=== PATIENT | female | born 1995 | race Two or more races ===

== ENCOUNTER 2025-08-25 11:40 | Emergency (ER) | payer MEDICAID, OTHER ==
[2025-08-25 12:23] LABS: Hematocrit 42.9 % (36.0-46.0); Hemoglobin 14.7 g/dL (12.2-16.2); Mean Corpuscular Hemoglobin 30.3 pg (28.0-32.0); Mean Corpuscular Volume 88.1 fL (80.0-100.0); Nucleated Red Blood Cells % 0.0 %
--- NOTE | 2025-08-25 13:19 | ED.PDOC ---
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 PATIENT STATES SHE IS CURRENTLY ABOUT 10 WEEKS AND BEGAN TO EXPERIENCE VAGINAL SPOTTING TODAY, PROMPTING HER TO COME TO THE ED TODAY. PATIENT DENIES DYSURIA, HEMATURIA, VAGINAL DISCHARGE, FLANK PAIN, FEVER, CHILLS, SHORTNESS OF BREATH, CHEST PAIN, ABDOMINAL PAIN, NAUSEA, VOMITING, HEADACHE, OR OTHER COMPLAINTS. NO OTHER SYMPTOMS OR MODIFYING FACTORS AT THIS TIME. PATIENT IS ALERT, ORIENTED X 4, AND HAS STEADY GAIT. Chief Complaint: Vaginal Bleed Time Seen by MD: 11:53 Reviewed Notes: Nurses Notes, Medications, Allergies Allergies: Coded Allergies: NO KNOWN ALLERGIES (Unverified , 08/25/25) Home Meds Active Scripts Nitrofurantoin Monohydrate Mac (Macrobid) 100 Mg Cap, 100 MG PO BID, #20 CAP Prov:JONES GTZ 08/25/25 Information Source: Patient Mode of Arrival: Ambulatory Timing: Hours Prehospital treatment: None Severity: Mild Vaginal Lesions: None Bleeding Quality: Bright Red Vaginal Mass: None Onset Of Mass/Bleeding: Spontaneous Sexual Activity: Last Consensual [place]: Unknown Control: None History of: Current Blood Type: Unknown Symptoms of Possible : None Associated Signs and Symptoms: Other (VAGINAL SPOTTING ) Past Medical History PAST MEDICAL HISTORY: Denies Surgical History: Denies all surgeries CARD STRIPPER History: No Pertinent CARD STRIPPER History Family History Family History: Reviewed,noncontributory to illness Social History Smoker: Non-Smoker Alcohol: Denies ETOH Use Drugs: Denies Drug Use Lives In: Home Constitutional: denies: chills, diaphoresis, fatigue, fever, malaise, sweats, weakness, others EENTM: denies: blurred vision, double vision, ear bleeding, ear discharge, ear drainage, ear pain, ear ringing, eye pain, eye redness, hearing loss, mouth pain, mouth swelling, nasal discharge, nose bleeding, nose congestion, nose pain, photophobia, tearing, throat pain, throat swelling, voice changes, others Respiratory: denies: cough, hemoptysis, orthopnea, SOB at rest, shortness of breath, SOB with excertion, stridor, wheezing, others Cardiovascular: denies: chest pain, dizzy spells, diaphoresis, Dyspnea on exertion, edema, irregular heart beat, left arm pain, lightheadedness, palpitations, PND, syncope, others Gastrointestinal: denies: abdomen distended, abdominal pain, blood streaked bowels, constipated, diarrhea, dysphagia, difficulty swallowing, hematemesis, melena, nausea, poor appetite, poor fluid intake, rectal bleeding, rectal pain, vomiting, others Genitourinary: reports: abnormal vagina bleeding, ; denies: burning, dyspareunia, dysuria, flank pain, frequency, hematuria, incontinence, pain, vagina discharge, urgency, others Neurological: denies: dizziness, fainting, headache, left sided numbness, left sided weakness, numbness, paresthesia, pre-existing deficit, right sided numbness, right sided weakness, seizure, speech problems, tingling, tremors, weakness, others Musculoskeletal: denies: back pain, gout, joint pain, joint swelling, muscle pain, muscle stiffness, neck pain, others Integumetry: denies: bruises, change in color, change in hair/nails, dryness, laceration, lesions, lumps, rash, wounds, others Allergic/Immunocompromised: denies: Difficulty Healing, Frequent Infections, Hives, Itching, others Hematologic/Lymphatic: denies: anemia, blood clots, easy bleeding, easy bruising, swollen glands, others Endocrine: denies: excessive hunger, excessive sweating, excessive thirst, excessive urination, flushing, intolerance to cold, intolerance to heat, unexplained weight gain, unexplained weight loss, others Psychiatric: denies: anxiety, bipolar disorder, depression, hopeless, panic disorder, schizophrenia, sleepless, suicidal, others All Other Systems: Reviewed and Negative Physical Exam General Appearance: No Apparent Distress, Obese HEENT: Normal ENT Inspection, PERRL/EOMI, Pharynx Normal, TMs Normal Neck: Full Range of Motion, Non-Tender, Normal, Normal Inspection Respiratory: Chest Non-Tender, Lungs Clear, No Accessory Muscle Use, No Respiratory Distress, Normal Breath Sounds Cardiovascular: No Edema, No JVD, No Murmur, No Gallop, Normal Peripheral Pulses, Regular Rate/Rhythm Breast Exam: Deferred Gastrointestinal: No Organomegaly, Non Tender, No Pulsatile Mass, Normal Bowel Sounds, Soft Genitalia: Deferred Pelvic: Normal External Exam, Tender Uterus, Other (VAGINAL SPOTTING, NO VAGINAL BLEEDING AND BLOOD CLOTS. 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 Was a procedure done?: No Differential Diagnosis (CARD STRIPPER) Vaginal Bleeding: - Complete, - Incomplete, - Threatened, UTI, Vaginitis Mass / Lesion: N/A Vaginal Discharge: N/A X-Ray, Labs, Meds, VS Vital Signs Date Time Temp Pulse Resp B/P (MAP) Pulse Ox O2 Delivery O2 Flow Rate FiO2 08/25/25 11:44 98.0 85 18 157/102 97 98.0 Lab Test 08/25/25 13:00 08/25/25 12:03 Range/Units Urine Color Colorless Yellow Urine Clarity Ex.turbid Clear Urine pH 7.5 5.0-9.0 Urine Specific [place] 1.014 1.001-1.035 Urine Protein Trace H Negative Urine Ketones Negative Negative Urine Blood 3+ H Negative /uL Urine Nitrite Negative Negative Urine Bilirubin Negative Negative Urine Urobilinogen Normal Negative mg/dL Urine Leukocyte Esterase 3+ Negative /uL Urine RBC 88 0 - 4 /hpf Urine WBC Clumps Present None Seen /hpf Urine Microscopic WBC 121 H 0-5 /HPF Urine Squamous Epithelial Cells Mod <5 /hpf Urine Bacteria Few H None Seen /hpf Urine Mucus Few None Seen Urine Glucose Normal Normal mg/dL White Blood Count 9.1 4.4-10.8 10^3/uL Red Blood Count 4.87 4.0-5.20 10^6/uL Hemoglobin 14.7 12.2-16.2 g/dL Hematocrit 42.9 36.0-46.0 % Mean Corpuscular Volume 88.1 80.0-100.0 fL Mean Corpuscular Hemoglobin 30.3 28.0-32.0 pg Mean Corpuscular Hemoglobin Concent 34.4 32.0-36.0 g/dL Red Cell Distribution Width 13.6 11.8-14.3 % Platelet Count 237 140-450 10^3/uL Mean Platelet Volume 9.1 6.9-10.8 fL Neutrophils (%) (Auto) 59.8 37.0-80.0 % Lymphocytes (%) (Auto) 31.0 10.0-50.0 % Monocytes (%) (Auto) 7.0 0.0-12.0 % Eosinophils (%) (Auto) 1.8 0.0-7.0 % Basophils (%) (Auto) 0.4 0.0-2.0 % Neutrophils # (Auto) 5.4 1.6-8.6 10 ^3/uL Lymphocytes # (Auto) 2.8 0.4-5.4 10 ^3/uL Monocytes # (Auto) 0.6 0-1.3 10 ^3/uL Eosinophils # (Auto) 0.2 0-0.8 10 ^3/uL Basophils # (Auto) 0 0-0.2 10 ^3/uL Nucleated Red Blood Cells 0.0 % Beta HCG, Quantitative 80325.2 H 1.5-4.2 mIU/mL Procedure: US OB ULTRASOUND COMP LESS 14WKS Study Date and Requested Time: 08/25/2025 01:57 PM Study Description: US OB ULTRASOUND COMP LESS 14WKS History: VAGINAL SPOTTING, 10 WEEKS Comparison: None Technique: Multiple high resolution aburto-scale images obtained of the uterus, fetus, and other gestational components with M-mode scanning for evaluation of heart rate. Findings: Single live intrauterine with gestational sac, yolk sac, and fetus visualized. heart rate of 184 bpm. Estimated gestational age 11 weeks/ 4 days based on mean gestational sac diameter of 5.4 cm and crown-rump length of 4.7 cm. Uterus measures 10.9 x 8.2 x 8.8 cm in size. Cervical os appears closed. Right ovary measures 3.4 x 2.6 x 3.2 cm with a 2.5 cm complex cyst. Normal right ovarian color doppler flow. The left ovary is not visualized. No evidence of free fluid in the cul-de-sac. Impression: Single live intrauterine with heart rate of 184 bpm. Estimated gestational age 11 weeks/ 4 days with estimated date of confinement 03/12/2026. 2.5 cm complex right ovarian cyst. The left ovary is not visualized. ATED BY: BRITANY STEINBERG DO DICTATED DATE/TIME: 08/25/251420 SIGNED BY: BRITANY STEINBERG DO SIGNED DATE/TIME: 08/25/251420 CC: X-Ray, Labs, Meds, VS Comment EXTERNAL MEDICAL RECORDS REVIEWED: [NONE] INDEPENDENT HISTORIANS: [NONE] SOCIAL DETERMINANTS OF HEALTH: [NONE] LABS ORDERED: CBC, UA, BETA HCG QUANT REVIEWED AND INTERPRETED RESULTS: BHCG QUANT 69,314.2 LEUKOCYTES 3+, BLOOD 3+ IMAGING ORDERED: US OB < 14 WKS TREATMENTS ORDERED: NONE PROCEDURES PERFORMED: NONE CRITICAL CARE TIME: NONE I HAVE DISCUSSED THE PATIENT WITH THE ATTENDING PHYSICIAN DR. MEDINA AND HE AGREES WITH THE PATIENT'S PLAN OF CARE AND DISPOSITION. BASED ON HISTORY OF PRESENT ILLNESS, AND PHYSICAL EXAM, PATIENT WILL BE DISCHARGED HOME. DISCUSSED PLAN FOR DISCHARGE HOME WITH RX [MACROBID]. MEDICATION WARNINGS GIVEN. SHARED DECISION MAKING: PATIENT INSTRUCTED TO FOLLOW UP WITH PRIMARY CARE PROVIDER IN 1-2 DAYS FOR RE-EVALUATION OF SYMPTOMS. PATIENT VERBALIZES UNDERSTANDING TO RETURN TO ED FOR NEW OR WORSENING SYMPTOMS OR IF FOLLOW UP WITH PCP CANNOT BE OBTAINED. PATIENT FEELS COMFORTABLE GOING HOME AT THIS TIME. ALL QUESTIONS ADDRESSED AT TIME OF DISCHARGE. Images Reviewed?: Images reviewed and evaluated by me Time of 1ST Reevaluation: 14:39 Reevaluation 1ST: Improved Patient Education/Counseling: Diagnosis, Treatment, Need For Follow Up Family Education/Counseling: Diagnosis, Treatment, Need For Follow Up Medical Screening: No EMC Exist At This Time Departure 1 Departure Time of Disposition: 14:39 Impression: Primary Impression: Vaginal spotting Additional Impressions: Threatened in first trimester Acute UTI (urinary tract infection) Right ovarian cyst Disposition: 01 HOME / SELF CARE / HOMELESS Condition: Stable Additional Instructions: FOLLOW-UP WITH PCP 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 TAKE MEDICATIONS PRESCRIBED. RETURN TO ED FOR ANY NEW OR WORSENING SYMPTOMS. e-Prescriptions Nitrofurantoin Monohydrate Mac (Macrobid) 100 Mg Cap 100 MG PO BID, #20 CAP Prov: JONES GTZ 08/25/25 Discharged With: Self Critical Care Note Critical Care Time?: No Stability Stability form required: No I personally scribed for JONES GTZ ([email or web address]) on 08/25/25 at 13:19. Electronically submitted by Sherman Padron ([email or web address]). I personally scribed for JONES GTZ ([email or web address]) on 08/25/25 at 14:27. Electronically submitted by Sherman Padron ([email or web address]). JONES GTZ Aug 25, 2025 13:19
[2025-08-25 13:40] LABS: Urine Protein, UAD TRACE (Negative); Urine WBC Clumps PRESENT /hpf (None Seen)
--- NOTE | 2025-08-25 14:23 | DVH ---
Procedure: US OB ULTRASOUND COMP LESS 14WKS Study Date and Requested Time: 08/25/2025 01:57 PM Study Description: US OB ULTRASOUND COMP LESS 14WKS History: VAGINAL SPOTTING, 10 WEEKS Comparison: None Technique: Multiple high resolution aburto-scale images obtained of the uterus, fetus, and other gestational components with M-mode scanning for evaluation of heart rate. Findings: Single live intrauterine with gestational sac, yolk sac, and fetus visualized. heart rate of 184 bpm. Estimated gestational age 11 weeks/ 4 days based on mean gestational sac diameter of 5.4 cm and crown-rump length of 4.7 cm. Uterus measures 10.9 x 8.2 x 8.8 cm in size. Cervical os appears closed. Right ovary measures 3.4 x 2.6 x 3.2 cm with a 2.5 cm complex cyst. Normal right ovarian color doppler flow. The left ovary is not visualized. No evidence of free fluid in the cul-de-sac. Impression: Single live intrauterine with heart rate of 184 bpm. Estimated gestational age 11 weeks/ 4 days with estimated date of confinement 03/12/2026. 2.5 cm complex right ovarian cyst. The left ovary is not visualized.
[2025-08-25] MEDS ORDERED: NITR-87 PO (14:36)
[2025-08-25 14:44] VITALS: BP 149/88; PULSE 74; RESP 16; TEMP 98.3; O2SAT 99
== END 2025-08-25 14:46 | disposition home or self-care (01) ==
LOC: ER 11:40
DX: O20.0 Threatened abortion (principal); O23.41 Unspecified infection of urinary tract in pregnancy, first trimester; N39.0 Urinary tract infection, site not specified; N83.291 Other ovarian cyst, right side; Z3A.11 11 weeks gestation of pregnancy; Z79.899 Other long term (current) drug therapy
CPT/HCPCS: 36415; 76801; 81001; 84702; 85025

== ENCOUNTER 2025-08-31 12:29 | Emergency (ER) | payer MEDICAID ==
[~2025-08-31] VITALS: Ht 170.2 cm; Wt 134.2 kg
[~2025-08-31 12:29] MED LIST: NITR-87 PO
[2025-08-31 13:25] LABS: Hematocrit 42.0 % (36.0-46.0); Hemoglobin 14.5 g/dL (12.2-16.2); Mean Corpuscular Hemoglobin 30.4 pg (28.0-32.0); Mean Corpuscular Volume 88.3 fL (80.0-100.0); Nucleated Red Blood Cells % 0.0 %
[2025-08-31 13:53] VITALS: BP 143/76; PULSE 75; RESP 18; TEMP 98.6; O2SAT 97
--- NOTE | 2025-08-31 14:03 | ED.PDOC ---
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 PATIENT STATES SHE IS CURRENTLY ABOUT 11 WEEKS AND BEGAN TO EXPERIENCE VAGINAL SPOTTING TODAY, PROMPTING HER TO COME TO THE ED TODAY. PATIENT CAME TO THE ED 1 WEEK PRIOR FOR SIMILAR SYMPTOMS AND WAS DIAGNOSED WITH A UTI AND GIVEN REFERRAL TO OB PROVIDERS. PATIENT STATES DUE TO INSURANCE PROBLEMS SHE IS UNABLE TO GET AN APPOINTMENT SINCE STATES SHE MADE AN APPOINTMENT FOR LATER THIS WEEK IN [place]. PATIENT STATES SHE CAME TODAY DUE TO NEW ONSET SPOTTING EARLIER THIS MORNING. PATIENT DENIES DYSURIA, HEMATURIA, VAGINAL DISCHARGE, FLANK PAIN, FEVER, CHILLS, SHORTNESS OF BREATH, CHEST PAIN, ABDOMINAL PAIN, NAUSEA, VOMITING, HEADACHE, OR OTHER COMPLAINTS. NO OTHER SYMPTOMS OR MODIFYING FACTORS AT THIS TIME. PATIENT IS ALERT, ORIENTED X 4, AND HAS STEADY GAIT. Chief Complaint: Vaginal Bleed Time Seen by MD: 14:00 Reviewed Notes: Nurses Notes, Medications, Allergies Allergies: Coded Allergies: NO KNOWN ALLERGIES (Unverified , 08/25/25) Home Meds Active Scripts Nitrofurantoin Monohydrate Mac (Macrobid) 100 Mg Cap, 100 MG PO BID, #20 CAP Prov:JONES GTZ 08/25/25 Information Source: Patient Mode of Arrival: Ambulatory Brought in by: SELF Timing: Hours Prehospital treatment: None Severity: Mild Vaginal Discharge: None Vaginal Lesions: None Bleeding Quality: Bright Red Onset Of Mass/Bleeding: Spontaneous Sexual Activity: Last Consensual [place]: None History of: Current Associated Signs and Symptoms: Other (VAGINAL SPOTTING ) Past Medical History PAST MEDICAL HISTORY: Denies Surgical History: Denies all surgeries RESIDENTIAL REMODELING SUBCONTRACTOR History: No Pertinent RESIDENTIAL REMODELING SUBCONTRACTOR History Family History Family History: Reviewed,noncontributory to illness Social History Smoker: Non-Smoker Alcohol: Denies ETOH Use Drugs: Denies Drug Use Lives In: Home Constitutional: denies: chills, diaphoresis, fatigue, fever, malaise, sweats, weakness, others EENTM: denies: blurred vision, double vision, ear bleeding, ear discharge, ear drainage, ear pain, ear ringing, eye pain, eye redness, hearing loss, mouth pain, mouth swelling, nasal discharge, nose bleeding, nose congestion, nose pain, photophobia, tearing, throat pain, throat swelling, voice changes, others Respiratory: denies: cough, hemoptysis, orthopnea, SOB at rest, shortness of breath, SOB with excertion, stridor, wheezing, others Cardiovascular: denies: chest pain, dizzy spells, diaphoresis, Dyspnea on exertion, edema, irregular heart beat, left arm pain, lightheadedness, palpitations, PND, syncope, others Gastrointestinal: denies: abdomen distended, abdominal pain, blood streaked bowels, constipated, diarrhea, dysphagia, difficulty swallowing, hematemesis, melena, nausea, poor appetite, poor fluid intake, rectal bleeding, rectal pain, vomiting, others Genitourinary: reports: abnormal vagina bleeding, ; denies: burning, dyspareunia, dysuria, flank pain, frequency, hematuria, incontinence, pain, vagina discharge, urgency, others Neurological: denies: dizziness, fainting, headache, left sided numbness, left sided weakness, numbness, paresthesia, pre-existing deficit, right sided numbness, right sided weakness, seizure, speech problems, tingling, tremors, weakness, others Musculoskeletal: denies: back pain, gout, joint pain, joint swelling, muscle pain, muscle stiffness, neck pain, others Integumetry: denies: bruises, change in color, change in hair/nails, dryness, laceration, lesions, lumps, rash, wounds, others Allergic/Immunocompromised: denies: Difficulty Healing, Frequent Infections, Hives, Itching, others Hematologic/Lymphatic: denies: anemia, blood clots, easy bleeding, easy bruising, swollen glands, others Endocrine: denies: excessive hunger, excessive sweating, excessive thirst, excessive urination, flushing, intolerance to cold, intolerance to heat, unexplained weight gain, unexplained weight loss, others Psychiatric: denies: anxiety, bipolar disorder, depression, hopeless, panic disorder, schizophrenia, sleepless, suicidal, others All Other Systems: Reviewed and Negative Physical Exam General Appearance: No Apparent Distress, Obese HEENT: Normal ENT Inspection, PERRL/EOMI, Pharynx Normal, TMs Normal Neck: Full Range of Motion, Non-Tender, Normal, Normal Inspection Respiratory: Chest Non-Tender, Lungs Clear, No Accessory Muscle Use, No Respiratory Distress, Normal Breath Sounds Cardiovascular: No Edema, No JVD, No Murmur, No Gallop, Normal Peripheral Pulses, Regular Rate/Rhythm Breast Exam: Deferred Gastrointestinal: No Organomegaly, Non Tender, No Pulsatile Mass, Normal Bowel Sounds, Soft Genitalia: Deferred Pelvic: Normal External Exam, Tender Uterus, Other (VAGINAL SPOTTING, NO VAGINAL BLEEDING AND BLOOD CLOTS. ) Rectal: Deferred Extremities: No calf tenderness, Normal capillary refill, Normal inspection, Normal range of motion, Non-tender, No pedal edema Musculoskeletal : Apperance: Normal Neurologic: Alert, head of stock II-XII nml as Tested, No Motor Deficits, Normal Affect, Normal Mood, No Sensory Deficits Cerebellar Function: Normal Reflexes: Normal Skin: Dry, Normal Color, Warm Peripheral Pulses: 2+ carotid (R), 2+ carotid (L), 2+ dorsalis pedis (R), 2+ dorsalis pedis (L) Lymphatic: No Adenopathy Was a procedure done? Was a procedure done?: No Differential Diagnosis (RESIDENTIAL REMODELING SUBCONTRACTOR) Vaginal Bleeding: - Missed, - Threatened, Ectopic , Placenta Previa, UTI, Other (BLEEDING IN ) Vaginal Discharge: UTI X-Ray, Labs, Meds, VS Vital Signs Date Time Temp Pulse Resp B/P (MAP) Pulse Ox O2 Delivery O2 Flow Rate FiO2 08/31/25 13:53 98.6 75 18 143/76 (98) 97 98.6 08/31/25 13:53 75 18 97 Room Air 08/31/25 12:30 98.0 88 15 140/91 97 98.0 Lab Test 08/31/25 13:10 08/31/25 01:45 Range/Units White Blood Count 9.6 4.4-10.8 10^3/uL Red Blood Count 4.76 4.0-5.20 10^6/uL Hemoglobin 14.5 12.2-16.2 g/dL Hematocrit 42.0 36.0-46.0 % Mean Corpuscular Volume 88.3 80.0-100.0 fL Mean Corpuscular Hemoglobin 30.4 28.0-32.0 pg Mean Corpuscular Hemoglobin Concent 34.5 32.0-36.0 g/dL Red Cell Distribution Width 13.7 11.8-14.3 % Platelet Count 223 140-450 10^3/uL Mean Platelet Volume 8.9 6.9-10.8 fL Neutrophils (%) (Auto) 64.5 37.0-80.0 % Lymphocytes (%) (Auto) 28.5 10.0-50.0 % Monocytes (%) (Auto) 5.4 0.0-12.0 % Eosinophils (%) (Auto) 1.2 0.0-7.0 % Basophils (%) (Auto) 0.4 0.0-2.0 % Neutrophils # (Auto) 6.2 1.6-8.6 10 ^3/uL Lymphocytes # (Auto) 2.7 0.4-5.4 10 ^3/uL Monocytes # (Auto) 0.5 0-1.3 10 ^3/uL Eosinophils # (Auto) 0.1 0-0.8 10 ^3/uL Basophils # (Auto) 0 0-0.2 10 ^3/uL Nucleated Red Blood Cells 0.0 % Beta HCG, Quantitative 24055.2 H 1.5-4.2 mIU/mL Urine Color Light-yellow Yellow Urine Clarity Turbid H Clear Urine pH 7.5 5.0-9.0 Urine Specific [place] 1.012 1.001-1.035 Urine Protein Negative Negative Urine Ketones Negative Negative Urine Blood 3+ H Negative /uL Urine Nitrite Negative Negative Urine Bilirubin Negative Negative Urine Urobilinogen Normal Negative mg/dL Urine Leukocyte Esterase 3+ Negative /uL Urine RBC 208 0 - 4 /hpf Urine Microscopic WBC 115 H 0-5 /HPF Urine Squamous Epithelial Cells Mod <5 /hpf Urine Bacteria Many H None Seen /hpf Urine Mucus Few None Seen Urine Yeast (Budding) Occasional None Seen /hpf Urine Glucose Normal Normal mg/dL PATIENT: INEZ HIGGINSACCT: [id number]: [id number] : 1995 LOC: ER ROOM / BED: / AGE / SEX: 30 / F ADM STATUS: DEP ER SERVICE [id number] ORDERING PHYSICIAN: JONES GTZ PROCEDURE(s): OB4US - OB ULTRASOUND COMP LESS 14WKS REASON: VAGINAL SPOTTING,11 WEEKS , DECREASED BETA-HCG ORDER NUMBER(s): [id number], ACCESSION NUMBER(s): [id number] EXAM: US OB ULTRASOUND COMP LESS 14WKS HISTORY: VAGINAL SPOTTING,11 WEEKS , DECREASED BETA-HCG COMPARISON: US OB ULTRASOUND COMP LESS 14WKS on DOS: 08/25/25 TECHNIQUE: Transabdominal and transvaginal imaging was utilized. Grayscale and color doppler evaluation. Images were stored in the patient's permanent medical record. FINDINGS: UTERUS: 12 x 6.9 x 10.8 cm. Gestational sac measures 5.2 cm corresponding with a 11 weeks and 0 days. pole measures 5.7 cm corresponding with 12 weeks and 2 days. Estimated due date 03/17/26. Average gestational age corresponding with a 11 weeks and 5 days. heart rate 168 beats per minute. Question subchorionic hemorrhage measuring up to 2.2 cm RIGHT OVARY: Nonvisualized LEFT OVARY: Nonvisualized OTHER: No free fluid is identified. IMPRESSION: 1. Single viable gestation with normal cardiac activity and anatomy as above. 2. Trace subchorionic hemorrhage. ATED BY: JULIO OBANDO MD DICTATED DATE/TIME: 08/31/251521 SIGNED BY: JULIO OBANDO MD SIGNED DATE/TIME: 08/31/251521 CC: X-Ray, Labs, Meds, VS Comment COURSE: EXTERNAL MEDICAL RECORDS REVIEWED: [NONE] INDEPENDENT HISTORIANS: [NONE] SOCIAL DETERMINANTS OF HEALTH: [NONE] LABS ORDERED: CBC, BETA HCG, UA REVIEWED AND INTERPRETED RESULTS: NONE IMAGING ORDERED: NONE TREATMENTS ORDERED: NONE PROCEDURES PERFORMED: NONE CRITICAL CARE TIME: NONE I HAVE DISCUSSED THE PATIENT WITH THE ATTENDING PHYSICIAN DR. ROSALES, AND HE AGREES WITH THE PATIENT'S PLAN OF CARE AND DISPOSITION. BASED ON HISTORY OF PRESENT ILLNESS, AND PHYSICAL EXAM, PATIENT WILL BE DISCHARGED HOME. SHARED DECISION MAKING: DISCUSSED WITH PATIENT THAT THEIR WORKUP WAS NORMAL. PATIENT INSTRUCTED TO FOLLOW UP WITH PRIMARY CARE PROVIDER IN 1-2 DAYS FOR RE-EVALUATION OF SYMPTOMS. PATIENT VERBALIZES UNDERSTANDING TO RETURN TO ED FOR NEW OR WORSENING SYMPTOMS OR IF FOLLOW UP WITH PCP CANNOT BE OBTAINED. PATIENT FEELS COMFORTABLE GOING HOME AT THIS TIME. ALL QUESTIONS ADDRESSED AT TIME OF DISCHARGE. Time of 1ST Reevaluation: 14:30 Reevaluation 1ST: Improved Patient Education/Counseling: Diagnosis, Treatment, Need For Follow Up Family Education/Counseling: Diagnosis, Treatment, Need For Follow Up Medical Screening: No EMC Exist At This Time Departure 1 Departure Time of Disposition: 15:29 Impression: Primary Impression: Vaginal spotting Additional Impressions: Threatened in first trimester Acute UTI (urinary tract infection) Disposition: 01 HOME / SELF CARE / HOMELESS Condition: Stable Additional Instructions: INSTRUCTIONS: FOLLOW-UP WITH PCP IN 1 TO 2 DAYS. TAKE MEDICATIONS PRESCRIBED. RETURN TO ED FOR ANY NEW OR WORSENING SYMPTOMS. Discharged With: Self Critical Care Note Critical Care Time?: No Stability Stability form required: No Heart Score Heart Score: Heart Score Response (Comments) Value History N/A 0 EKG N/A 0 Age N/A 0 Risk Factors N/A 0 Troponin N/A 0 Total 0 I personally scribed for JONES GTZ ([email or web address]) on 08/31/25 at 14:03. Electronically submitted by Krystle Eugene (O-RIDZENAIDALittle Bird). I personally scribed for JONES GTZ ([email or web address]) on 08/31/25 at 14:03. Electronically submitted by Krystle Eugene ([employer] [place]). I personally scribed for JONES GTZ ([email or web address]) on 08/31/25 at 14:40. Electronically submitted by Krystle Eugene ([employer] [place]). JONES GTZ Aug 31, 2025 14:03
[2025-08-31 14:33] LABS: Urine Budding Yeast OCCASIONAL /hpf (None Seen); Urine Protein, UAD Negative (Negative)
--- NOTE | 2025-08-31 15:25 | DVH ---
EXAM: US OB ULTRASOUND COMP LESS 14WKS HISTORY: VAGINAL SPOTTING,11 WEEKS , DECREASED BETA-HCG COMPARISON: US OB ULTRASOUND COMP LESS 14WKS on DOS: 08/25/25 TECHNIQUE: Transabdominal and transvaginal imaging was utilized. Grayscale and color doppler evaluation. Images were stored in the patient's permanent medical record. FINDINGS: UTERUS: 12 x 6.9 x 10.8 cm. Gestational sac measures 5.2 cm corresponding with a 11 weeks and 0 days. pole measures 5.7 cm corresponding with 12 weeks and 2 days. Estimated due date 03/17/26. Average gestational age corresponding with a 11 weeks and 5 days. heart rate 168 beats per minute. Question subchorionic hemorrhage measuring up to 2.2 cm RIGHT OVARY: Nonvisualized LEFT OVARY: Nonvisualized OTHER: No free fluid is identified. IMPRESSION: 1. Single viable gestation with normal cardiac activity and anatomy as above. 2. Trace subchorionic hemorrhage.
== END 2025-08-31 15:14 | disposition home or self-care (01) ==
LOC: ER 12:29
DX: O20.0 Threatened abortion (principal); N39.0 Urinary tract infection, site not specified; Z3A.11 11 weeks gestation of pregnancy
CPT/HCPCS: 36415; 76801; 81001; 84702; 85025

== ENCOUNTER 2025-09-29 04:07 | Emergency (ER) | payer MEDICAID, OTHER ==
[~2025-09-29] VITALS: Ht 170.2 cm; Wt 134.8 kg
[2025-09-29 04:54] VITALS: PULSE 66; RESP 18; O2SAT 97
--- NOTE | 2025-09-29 06:46 | ED.PDOC ---
MACHINE III COREMAKER HPI Comments 30 year old female presents to the ED with a chief complaint of vaginal bleeding onset this morning. Patient is currently 16 weeks , , due date is 03/14/26, OBGYN is at [facility]. Patient woke up this morning experiencing vaginal bleeding as well as abdominal cramping. Denies vaginal discharge, dizziness, headache, nausea, vomiting, diarrhea, dysuria, fever, chills, shortness of breath, fall. No other symptoms or modifying factors p resent at this time. Chief Complaint: Vaginal Bleed Time Seen by MD: 06:15 Reviewed Notes: Medications, Allergies Allergies: Coded Allergies: NO KNOWN ALLERGIES (Unverified , 08/25/25) Home Meds Active Scripts Nitrofurantoin Monohydrate Mac (Macrobid) 100 Mg Cap, 100 MG PO BID, #20 CAP Prov:JONES GTZ 08/25/25 Information Source: Patient Mode of Arrival: Ambulatory Timing: Hours Severity: Moderate Vaginal Discharge: None Vaginal Lesions: None Bleeding Quality: Bright Red Vaginal Mass: None Onset Of Mass/Bleeding: Spontaneous Sexual Activity: Control: None History of: Current Symptoms of Possible : Missed Period Associated Signs and Symptoms: Vaginal Bleeding Past Medical History PAST MEDICAL HISTORY: Denies Surgical History: Denies all surgeries STOREROOM KEEPER History: No Pertinent STOREROOM KEEPER History Family History Family History: Reviewed,noncontributory to illness Social History Smoker: Non-Smoker Alcohol: Denies ETOH Use Drugs: Denies Drug Use Lives In: Home Constitutional: denies: chills, diaphoresis, fatigue, fever, malaise, sweats, weakness, others EENTM: denies: blurred vision, double vision, ear bleeding, ear discharge, ear drainage, ear pain, ear ringing, eye pain, eye redness, hearing loss, mouth pain, mouth swelling, nasal discharge, nose bleeding, nose congestion, nose pain, photophobia, tearing, throat pain, throat swelling, voice changes, others Respiratory: denies: cough, hemoptysis, orthopnea, SOB at rest, shortness of breath, SOB with excertion, stridor, wheezing, others Cardiovascular: denies: chest pain, dizzy spells, diaphoresis, Dyspnea on exertion, edema, irregular heart beat, left arm pain, lightheadedness, palpitations, PND, syncope, others Gastrointestinal: denies: abdomen distended, abdominal pain, blood streaked bowels, constipated, diarrhea, dysphagia, difficulty swallowing, hematemesis, melena, nausea, poor appetite, poor fluid intake, rectal bleeding, rectal pain, vomiting, others Genitourinary: reports: abnormal vagina bleeding, ; denies: burning, dyspareunia, dysuria, flank pain, frequency, hematuria, incontinence, pain, vagina discharge, urgency, others Neurological: denies: dizziness, fainting, headache, left sided numbness, left sided weakness, numbness, paresthesia, pre-existing deficit, right sided numbness, right sided weakness, seizure, speech problems, tingling, tremors, weakness, others Musculoskeletal: denies: back pain, gout, joint pain, joint swelling, muscle pain, muscle stiffness, neck pain, others Integumetry: denies: bruises, change in color, change in hair/nails, dryness, laceration, lesions, lumps, rash, wounds, others Hematologic/Lymphatic: denies: anemia, blood clots, easy bleeding, easy bruising, swollen glands, others Endocrine: denies: excessive hunger, excessive sweating, excessive thirst, excessive urination, flushing, intolerance to cold, intolerance to heat, unexplained weight gain, unexplained weight loss, others Psychiatric: denies: anxiety, bipolar disorder, depression, hopeless, panic disorder, schizophrenia, sleepless, suicidal, others All Other Systems: Reviewed and Negative Physical Exam General Appearance: Normal HEENT: Normal ENT Inspection, Pharynx Normal, TMs Normal Neck: Full Range of Motion, Non-Tender, Normal, Normal Inspection Respiratory: Chest Non-Tender, Lungs Clear, No Accessory Muscle Use, No Respiratory Distress, Normal Breath Sounds Cardiovascular: No Edema, No JVD, No Murmur, No Gallop, Normal Peripheral Pulses, Regular Rate/Rhythm Breast Exam: Deferred Gastrointestinal: No Organomegaly, Non Tender, No Pulsatile Mass, Normal Bowel Sounds, Soft Genitalia: Deferred Pelvic: Deferred Rectal: Deferred Extremities: No calf tenderness, Normal capillary refill, Normal inspection, Normal range of motion, Non-tender, No pedal edema Musculoskeletal : Apperance: Normal Neurologic: Alert, donor center technician II-XII nml as Tested, No Motor Deficits, Normal Affect, Normal Mood, No Sensory Deficits Cerebellar Function: Normal Reflexes: Normal Skin: Dry, Normal Color, Warm Lymphatic: No Adenopathy Was a procedure done? Was a procedure done?: No Differential Diagnosis (STOREROOM KEEPER) Vaginal Bleeding: - Missed, - Threatened, Blood Loss Anemia, UTI X-Ray, Labs, Meds, VS Vital Signs Date Time Temp Pulse Resp B/P (MAP) Pulse Ox O2 Delivery O2 Flow Rate FiO2 09/29/25 08:00 98.0 63 18 120/80 (93) 97 98.0 09/29/25 08:00 63 09/29/25 08:00 63 18 97 Room Air* 0 21 09/29/25 04:54 66 18 97 Room Air* 0 21 09/29/25 04:40 97.7 74 25 136/79 (98) 97 97.7 09/29/25 04:10 96.8 91 18 131/78 95 96.8 Lab Test 09/29/25 06:32 09/29/25 05:50 Range/Units White Blood Count 8.1 4.4-10.8 10^3/uL Red Blood Count 4.23 4.0-5.20 10^6/uL Hemoglobin 12.9 12.2-16.2 g/dL Hematocrit 37.3 36.0-46.0 % Mean Corpuscular Volume 88.3 80.0-100.0 fL Mean Corpuscular Hemoglobin 30.5 28.0-32.0 pg Mean Corpuscular Hemoglobin Concent 34.5 32.0-36.0 g/dL Red Cell Distribution Width 13.4 11.8-14.3 % Platelet Count 224 140-450 10^3/uL Mean Platelet Volume 9.1 6.9-10.8 fL Neutrophils (%) (Auto) 67.0 37.0-80.0 % Lymphocytes (%) (Auto) 25.1 10.0-50.0 % Monocytes (%) (Auto) 6.0 0.0-12.0 % Eosinophils (%) (Auto) 1.6 0.0-7.0 % Basophils (%) (Auto) 0.3 0.0-2.0 % Neutrophils # (Auto) 5.5 1.6-8.6 10 ^3/uL Lymphocytes # (Auto) 2.0 0.4-5.4 10 ^3/uL Monocytes # (Auto) 0.5 0-1.3 10 ^3/uL Eosinophils # (Auto) 0.1 0-0.8 10 ^3/uL Basophils # (Auto) 0 0-0.2 10 ^3/uL Nucleated Red Blood Cells 0.1 % Sodium Level 140 136-145 mmol/L Potassium Level 4.0 3.5-5.1 mmol/L Chloride Level 105 98-107 mmol/L Carbon Dioxide Level 25 20-31 mmol/L Anion Gap 10 5-15 Blood Urea Nitrogen < 5 L 9-23 mg/dL Creatinine 0.57 0.550-1.02 mg/dL Glomerular Filtration Rate Calc 124 >90 mL/min BUN/Creatinine Ratio 8.8 L 10.0-20.0 Serum Glucose 92 74-106 mg/dL Calcium Level 9.2 8.7-10.4 mg/dL Beta HCG, Quantitative 53094.0 H 1.5-4.2 mIU/mL Urine Color Colorless Yellow Urine Clarity Turbid H Clear Urine pH 7.0 5.0-9.0 Urine Specific [place] 1.008 1.001-1.035 Urine Protein Negative Negative Urine Ketones Negative Negative Urine Blood 3+ H Negative /uL Urine Nitrite Negative Negative Urine Bilirubin Negative Negative Urine Urobilinogen Normal Negative mg/dL Urine Leukocyte Esterase 3+ Negative /uL Urine RBC 22 0 - 4 /hpf Urine Microscopic WBC 42 H 0-5 /HPF Urine Squamous Epithelial Cells Few <5 /hpf Urine Bacteria Few H None Seen /hpf Urine Glucose Normal Normal mg/dL Chlamydia trachomatis ([place]) Pending Neisseria gonorrhoeae ([place]) Pending [place] [address] Ph: [phone] DIAGNOSTIC IMAGING Diagnostic Imaging Report : [id number] Signed PATIENT: INEZ HIGGINSACCT: [id number] UNIT: [id number] : 1995 LOC: ER ROOM / BED: / AGE / SEX: 30 / F ADM STATUS: REG ER SERVICE [id number] ORDERING PHYSICIAN: NILAY DENNY MD PROCEDURE(s): OBUS - OB ULTRASOUND COMP GTR 14 WKS REASON: Vaginal Bleeding during ORDER NUMBER(s): [id number], ACCESSION NUMBER(s): [id number] EXAM: US OB ULTRASOUND COMP GTR 14 WKS HISTORY: Vaginal Bleeding during TECHNIQUE: Multiple real-time grayscale images of the gravid uterus with duplex Doppler color flow and M-mode spectral analysis. COMPARISON: US OB ULTRASOUND COMP LESS 14WKS on DOS: 08/31/25, US OB ULTRASOUND COMP LESS 14WKS on DOS: 08/25/25 FINDINGS: IUP single live fetus at 16 weeks 1 day average ultrasound age (AUA) based on composite averages of the BPD, head circumference, abdominal circumference and femur length Age based on (early ultrasound) : 16 weeks 2 days MEASUREMENTS: BPD: 3.1 cm GA: 15 w 5 d HC: 12.2 cm GA: 16 w 1 d AC: 10.5 cm GA: 16 w 3 d FL: 2.0 cm GA: 16 w 1 d Estimated weight 150+/-22.5 grams; 0 lbs 5 oz +/-1 oz, 39th percentile. heart rate 155 beats per minute DEBBIE adequate. MVP 3.8 cm. ANATOMIC SURVEY: Complete anatomic survey was not performed at this time. Breech Presentation Posterior grade I placenta without previa or abruption Cervix closed measuring 3.5 cm IMPRESSION: 1. IUP single live fetus at 16 weeks 1 day AUA corresponding to an LIYA of 03/15/2026. 2. No abnormality detected. ATED BY: GENARO HERNANDEZ MD DICTATED DATE/TIME: 09/29/25701 SIGNED BY: GENARO HERNANDEZ MD SIGNED DATE/TIME: 09/29/25701 CC: Time of 1ST Reevaluation: 06:45 Reevaluation 1ST: Unchanged Patient Education/Counseling: Diagnosis, Treatment, Prognosis Family Education/Counseling: Diagnosis, Treatment, Prognosis Departure 1 Departure Time of Disposition: 08:57 (Patient likely with threatened miscarriage. We will discharge patient with outpatient follow up) Impression: Primary Impression: Threatened miscarriage Additional Impression: Acute cystitis Disposition: 01 HOME / SELF CARE / HOMELESS Condition: Stable Additional Instructions: You have a urinary tract infection. You were prescribed antibiotics. You have a threatened miscarriage. Your beta hcg level today was 09761. Your ultrasound showed single live fetus at 16 weeks 1 day_. You should follow up with OBGYN within three days to recheck your blood work. If your symptoms worsen or you have any other concerns then please return to the ER. e-Prescriptions Nitrofurantoin Monohydrate Mac (Macrobid) 100 Mg Cap 100 MG PO BID for 7 Days, #14 CAP Prov: LALI ROSALES MD 09/29/25 Discharged With: Self Critical Care Note Critical Care Time?: No Stability Stability form required: No Heart Score Heart Score: Heart Score Response (Comments) Value History N/A 0 EKG N/A 0 Age N/A 0 Risk Factors N/A 0 Troponin N/A 0 Total 0 I personally scribed for LALI ROSALES MD ([email or web address]) on 09/29/25 at 06:46. Electronically submitted by Berta Mcfarlane ([email or web address]). I personally scribed for LALI ROSALES MD ([email or web address]) on 09/29/25 at 06:58. Electronically submitted by Berta Mcfarlane ([email or web address]). I personally scribed for LALI ROSALES MD ([email or web address]) on 09/29/25 at 07:12. Electronically submitted by Berta Mcfarlane ([email or web address]). LALI ROSALES MD Sep 29, 2025 06:46
[2025-09-29 06:49] LABS: Urine Protein, UAD Negative (Negative)
--- NOTE | 2025-09-29 07:04 | DVH ---
EXAM: US OB ULTRASOUND COMP GTR 14 WKS HISTORY: Vaginal Bleeding during TECHNIQUE: Multiple real-time grayscale images of the gravid uterus with duplex Doppler color flow and M-mode spectral analysis. COMPARISON: US OB ULTRASOUND COMP LESS 14WKS on DOS: 08/31/25, US OB ULTRASOUND COMP LESS 14WKS on DOS: 08/25/25 FINDINGS: IUP single live fetus at 16 weeks 1 day average ultrasound age (AUA) based on composite averages of the BPD, head circumference, abdominal circumference and femur length Age based on (early ultrasound) : 16 weeks 2 days MEASUREMENTS: BPD: 3.1 cm GA: 15 w 5 d HC: 12.2 cm GA: 16 w 1 d AC: 10.5 cm GA: 16 w 3 d FL: 2.0 cm GA: 16 w 1 d Estimated weight 150+/-22.5 grams; 0 lbs 5 oz +/-1 oz, 39th percentile. heart rate 155 beats per minute DEBBIE adequate. MVP 3.8 cm. ANATOMIC SURVEY: Complete anatomic survey was not performed at this time. Breech Presentation Posterior grade I placenta without previa or abruption Cervix closed measuring 3.5 cm IMPRESSION: 1. IUP single live fetus at 16 weeks 1 day AUA corresponding to an LIYA of 03/15/2026. 2. No abnormality detected.
[2025-09-29 07:09] LABS: Hematocrit 37.3 % (36.0-46.0); Hemoglobin 12.9 g/dL (12.2-16.2); Mean Corpuscular Hemoglobin 30.5 pg (28.0-32.0); Mean Corpuscular Volume 88.3 fL (80.0-100.0); Nucleated Red Blood Cells % 0.1 %
[2025-09-29 07:13] LABS: Chloride 105 mmol/L (98-107); Potassium 4.0 mmol/L (3.5-5.1); Sodium 140 mmol/L (136-145)
[2025-09-29 07:14] LABS: Anion Gap 10 (5-15); Calcium 9.2 mg/dL (8.7-10.4); Carbon Dioxide 25 mmol/L (20-31)
[2025-09-29 07:19] LABS: Glucose 92 mg/dL (74-106)
[2025-09-29 07:26] LABS: BUN/Creatinine Ratio 8.8 (10.0-20.0); Blood Urea Nitrogen < 5 mg/dL (9-23)
[2025-09-29 08:00] VITALS: PULSE 63; RESP 18; TEMP 98; O2SAT 97
[2025-09-29] MEDS ORDERED: NITR-87 PO (09:00)
[2025-09-29 09:27] VITALS: BP 135/86; PULSE 64; RESP 19; O2SAT 93
[2025-10-01 03:07] LABS: Chlamydia Trachomatis, NAA Negative (Negative); Neisseria gonorrhoeae, NAA Negative (Negative)
== END 2025-09-29 09:23 | disposition home or self-care (01) ==
LOC: ER 04:07
DX: O20.0 Threatened abortion (principal); O23.12 Infections of bladder in pregnancy, second trimester; Z3A.16 16 weeks gestation of pregnancy; Z79.899 Other long term (current) drug therapy
CPT/HCPCS: 36415; 76805; 80048; 81001; 84702; 85025; 86850; 86900; 86901